=== PATIENT | male | born 1960 | race Caucasian/White ===

== ENCOUNTER 2025-08-13 06:09 | Day surgery (SDC) | payer OTHER, SELFPAY ==
[2025-08-03 08:45] LABS: Hematocrit 47.8 % (39.0-52.0); Hemoglobin 16.3 g/dL (13.0-18.0); Mean Corp Hgb Conc. 34.1 g/dL (33.0-37.0); Mean Corpuscular Volume 86.6 fL (80.0-94.0); Platelet Count 249 10^3/uL (130-400); Red Cell Dist. Width 12.8 % (11.5-14.5)
[2025-08-03 09:52] LABS: Blood Urea Nitrogen 16 mg/dl (9-20); Calcium 9.8 mg/dl (8.4-10.2); Carbon Dioxide 31 mmol/L (22-30); Chloride 105 mmol/L (98-107); Glucose 92 mg/dl (70-99); Potassium 5.3 mmol/L (3.5-5.1); Sodium 140 mmol/L (135-145); eGFR > 60.00
[2025-08-03 14:10] VITALS: BMI 26.2
[2025-08-13] VITALS (8 sets, daily range): BP systolic 128–153; BP diastolic 78–92; BMI 26.2
--- NOTE | 2025-08-13 07:21 | W.SUR.PREOP ---
Pre-Operative Surgical Note
-
I have examined this patient prior to the performance of the scheduled procedure.
The patient's condition is unchanged from the time of the current History and
Physical and the patient is able to undergo the scheduled procedure.
[2025-08-13] MEDS: NORMOSOL-R/PLASMALYTE-A 1000 IV (08:50)
[2025-08-13] MEDS: TYLENOL 1000 MG PO (09:03)
--- NOTE | 2025-08-13 11:39 | W.IMMPOSTOP ---
Addendum entered and electronically signed by Giles Hancock MD 08/13/25 11:50:
#[id number]
Original Note:
Surgical Immed Post Op Note
-
Primary Surgeon: Giles Hancock MD
Assisting Surgeon: Estelita Charles
Pre-op Diagnosis: Left inguinal hernia, possible right
Post-op Diagnosis: Bilateral inguinal hernias; left indirect, right direct
Procedure Performed: Robotic assisted laparoscopic NICHOLAS repair bilateral inguinal hernias with mesh; 3D max large mid weight x 2
Anesthesia Type: GETA +0.25% Marcaine
Specimen / Cultures: None
Estimated Blood Loss: 6 mL
Complications: None immediate
Operative Findings: Left indirect inguinal hernia. No significant lipoma of spermatic cord. Direct and femoral space normal. 3D max large mid weight mesh secured to Ronaldo's ligament with 2-0 Vicryl stitch x 2
Right direct inguinal hernia with some laxity extending into the indirect inguinal region but no peritoneal protrusion into the inguinal canal. Right femoral space normal. 3D max mid weight mesh secured to Ronaldo's ligament with 2-0 Vicryl stitch
x 2
[2025-08-13] MEDS: ROXICODONE 5 MG PO (13:31)
== END 2025-08-13 14:33 | disposition home or self-care (01) ==
LOC: SDS 06:09
PROVIDERS: ATTENDING PHYSICIAN Surgery; FAMILY PHYSICIAN Family Medicine
DX: K40.20 Bilateral inguinal hernia, without obstruction or gangrene, not specified as recurrent (principal)
CPT/HCPCS: 49650; 36415; 80048; 85027; 93005; C1781